=== PATIENT | female | born 1990 | race Caucasian/White ===

== ENCOUNTER 2018-08-05 13:15 | Outpatient (REF) | payer MEDICARE, MEDICAID, SELFPAY ==
[2018-08-06 13:20] LABS: Chlamydia Result Negative; GC Result Negative; Specimen Description CERVIX
== END 2018-08-05 13:35 ==
LOC: LBN 13:15
PROVIDERS: PCP Specialist/Technologist Athletic Trainer; Visit Provider Nurse Practitioner Women's Health
DX: Z11.3 Encounter for screening for infections with a predominantly sexual mode of transmission (principal)
CPT/HCPCS: 87491; 87591

== ENCOUNTER 2019-07-05 01:34 | Outpatient (CLI) | payer MEDICARE, MEDICAID, SELFPAY ==
[2019-07-05 09:27] LABS: Anion Gap 11.6 mmol/L (3-11); BUN 14 mg/dL (7-18); CO2 25.4 mmol/L (21.0-32.0); CREATININE 0.79 mg/dL (0.55-1.02); Calcium 8.5 mg/dL (8.5-10.1); Calculated LDL 55 mg/dL; Chloride 105 mmol/L (98-107); Cholesterol 117 mg/dL (50-200); Glucose 93 mg/dL (70-100); HDL Cholesterol 35 mg/dL (40-60); Potassium 4.6 mmol/L (3.5-5.1); Sodium 142 mmol/L (136-145); Triglyceride 138 mg/dL (30-150)
== END 2019-07-05 01:54 ==
PROVIDERS: PCP Specialist/Technologist Athletic Trainer; Visit Provider Nurse Practitioner Family
DX: R07.9 Chest pain, unspecified (principal); K21.9 Gastro-esophageal reflux disease without esophagitis; F32.9 Major depressive disorder, single episode, unspecified; F70 Mild intellectual disabilities; Z13.1 Encounter for screening for diabetes mellitus; Z13.6 Encounter for screening for cardiovascular disorders
CPT/HCPCS: 36415; 80048; 80061; 82947

== ENCOUNTER 2019-10-12 10:58 | Outpatient (CLI) | payer MEDICARE, MEDICAID, SELFPAY ==
--- NOTE | 2019-10-12 | DI.RAD_ITS ---
EXAM: XR FOOT LT COMPLETE INDICATION: FOOT PAIN LT, M79.672. COMPARISON: No exams were available for comparison TECHNIQUE: 2D digital imaging was performed. FINDINGS: No acute fracture or dislocation is present. There are hammertoe deformities of the 2nd through 5th toes. The joint spaces are well maintained. The soft tissues are unremarkable. There is a small en thesophyte of the posterior calcaneus. IMPRESSION: No acute abnormality.
== END 2019-10-12 11:18 ==
PROVIDERS: PCP Specialist/Technologist Athletic Trainer; Visit Provider Physician Assistant Medical
DX: M79.672 Pain in left foot (principal); M20.42 Other hammer toe(s) (acquired), left foot
CPT/HCPCS: 73630

== ENCOUNTER 2020-02-21 11:23 | Outpatient (REF) | payer MEDICARE, MEDICAID, SELFPAY ==
--- NOTE | 2020-02-21 10:00 | PAPFT_PTH ---
PATIENT: JOSE J CEBALLOS LOC: [facility] U#:[id number] AGE/SX: 30/F ROOM: RE02/21/[address]: Belia Durand NP : 1990 BED: DIS: 02/21/2020 SPEC #: [id number] RECD: 02/21/20 12:51 STATUS: JASWINDER RENayan #: [id number] RACHEL: 02/21/20 10:[address]: Belia Durand NP DEPT: [facility] Cytology RECD BY: Caroline Alcantara ENTERED: 02/21/20 12:52 SP TYPE: PAPFT HYACINTH DR: Leon Mcdonnell Tissues: 1 - CX/ENDOCX FOR PAP SMEARS Procedures: PAP THIN PREP/[facility] Screening HPV DNA PROBE Comments: [id number]
== END 2020-02-21 11:43 ==
LOC: LBN 11:23
PROVIDERS: PCP Specialist/Technologist Athletic Trainer; Visit Provider Nurse Practitioner Women's Health
DX: Z12.4 Encounter for screening for malignant neoplasm of cervix (principal); Z11.51 Encounter for screening for human papillomavirus (HPV)
CPT/HCPCS: 88142; 87624

== ENCOUNTER 2025-04-26 11:24 | Outpatient (REF) | payer MEDICARE, MEDICAID, SELFPAY | END 2025-04-26 11:25 | disposition home or self-care (01) | LOC: LBN 11:24 | PROVIDERS: PCP Nurse Practitioner Family; Visit Provider Obstetrics & Gynecology | DX: Z12.4 Encounter for screening for malignant neoplasm of cervix (principal) | CPT/HCPCS: 88142; 87624 ==